=== PATIENT | male | born 1980 | race Caucasian/White ===

== ENCOUNTER 2022-03-29 11:47 | Emergency (ER) | payer OTHER ==
[2022-03-29] MEDS ORDERED: Ondansetron 4 MG/2 ML SDV IVPUSH ONE (12:06)
[2022-03-29] MEDS ORDERED: diphenhydrAMINE 50 MG/ML SDV IVPUSH ONE (12:07)
[2022-03-29] MEDS ORDERED: Sodium Chloride 0.9% 1,000 ML IV SCH (12:15)
[2022-03-29 12:36] LABS: ESTIMATED GFR 64 mL/min (>60)
[2022-03-29] MEDS ORDERED: Sodium Chloride 0.9% 75 ML IV SCH (13:00)
[2022-03-29] MEDS ORDERED: Iopamidol 612 MG/ML 100 ML Bottle IV SCH (13:00)
== END 2022-03-29 15:01 | disposition home or self-care (01) ==
LOC: JP.ED 11:47
DX: K52.9 Noninfective gastroenteritis and colitis, unspecified (principal); Z88.6 Allergy status to analgesic agent; Z20.822 Contact with and (suspected) exposure to COVID-19
CPT/HCPCS: 36415; 74177; 80053; 85025; 87635; 96361; 96374; 96375; 99284; J1200; J2405; J3490; J7030; Q9967; U0002